=== PATIENT | female | born 1975 | race Caucasian/White ===

== ENCOUNTER 2016-03-05 21:55 | Emergency (ER) | payer MEDICAID ==
[~2016-03-05] VITALS: Ht 152.4 cm; Wt 95.0 kg
[~2016-03-05 21:55] MED LIST: CLEO300C2 PO; MMW SSP; TRAM50 PO
[2016-03-05 21:59] VITALS: BP 137/89; PULSE 118; RESP 18; TEMP 98; O2SAT 99
[2016-03-05] MEDS ORDERED: MORPHINE SULFATE 4 MG/ML INJ IV PUSH ONE (22:45)
[2016-03-05] MEDS ORDERED: SODIUM CHLOR 0.9% 1000 ML INJ 1,000 ML IV ONE (22:45)
[2016-03-05 23:12] LABS: AUTOMATED NEUTROPHIL # 5.6 TH/MM3 (1.8-7.7); BASOPHIL # 0.3 TH/MM3 (0-0.2); BASOPHIL % 3.3 % (0.0-2.0); EOSINOPHIL # 0.1 TH/MM3 (0-0.4); EOSINOPHIL % 0.6 % (0.0-4.0); HEMATOCRIT 42.4 % (35.0-46.0); LYMPHOCYTE # 2.8 TH/MM3 (1.0-4.8); MEAN CELL VOLUME 86.6 FL (80.0-100.0); MEAN CORPUSCULAR HEMOGLOBIN 29.2 PG (27.0-34.0); MEAN CORPUSCULAR HGB CONC 33.7 % (32.0-36.0); MONO % 4.3 % (0.0-8.0); NEUT % 61.8 % (16.0-70.0); PLATELET COUNT 294 TH/MM3 (150-450); RED BLOOD COUNT 4.89 MIL/MM3 (4.00-5.30); RED CELL DISTRIBUTION WIDTH 13.4 % (11.6-17.2); WHITE BLOOD COUNT 9.2 TH/MM3 (4.0-11.0)
[2016-03-05 23:13] LABS: HEMO FLAGS DIFF FINAL
[2016-03-05 23:16] LABS: BLOOD, URINE TRACE (NEG); GLUCOSE,URINE NEG (NEG); KETONE, URINE NEG (NEG); NITRITE,URINE NEG (NEG)
[2016-03-05 23:17] VITALS: BP 122/71; PULSE 86; RESP 19; O2SAT 99
[2016-03-05 23:20] LABS: CHLORIDE 109 MEQ/L (98-107); POTASSIUM 3.7 MEQ/L (3.5-5.1); SODIUM (NA) 141 MEQ/L (136-145)
[2016-03-05 23:21] LABS: BACTERIA, URINE RARE /hpf; COMMENT (UR) CULT NOT INDICATED; CULTURE IF INDICATED CULT NOT INDICATED; RBC, URINE 0-3 /hpf (0-3); URINE COLOR STRAW (YELLW/STRAW)
[2016-03-05 23:23] LABS: ANION GAP 8 MEQ/L (5-15); BICARBONATE 23.7 MEQ/L (21.0-32.0)
[2016-03-05 23:24] LABS: BLOOD UREA NITROGEN 6 MG/DL (7-18)
[2016-03-05 23:25] VITALS: BP 128/65; PULSE 85; RESP 18; O2SAT 98
[2016-03-05 23:26] LABS: ALT (GPT) 39 U/L (10-53); AST (GOT) 13 U/L (15-37); GLOMERULAR FILTRATION RATE 91 ML/MIN (>89)
[2016-03-05 23:28] LABS: TOTAL BILIRUBIN ADULT 0.2 MG/DL (0.2-1.0)
[2016-03-05 23:29] LABS: ALKALINE PHOSPHATASE 80 U/L (45-117)
[2016-03-05] MEDS ORDERED: ONDANSETRON HCL 4 MG/2 ML VIAL IV PUSH ONE (23:45)
[2016-03-05 23:50] VITALS: BP 124/82; PULSE 88; RESP 18; O2SAT 98
--- NOTE | 2016-03-06 00:21 | PD ---
HPI Chief Complaint: Abdominal Pain Time Seen by Provider: 22:21 Travel History International Travel<30 days: No Contact w/Intl Traveler<30days: No Traveled to known affect area: No History of Present Illness HPI Patient is a 40-year-old female who comes in complaining of rectal pain and drainage for the past week. She says soon after crispness she noticed a painful lump around her rectum. She says it then started draining. She reports having a fever of 101 yesterday. She says she has pain with a bowel movement and she has difficulty moving her bowels, and has started to have pain in the left side of her abdomen. She has felt like her heart is racing. She says she's had some nausea, but no vomiting. She says she feels like the lump has gone down, and has not noticed any draining for the past few days. She tried to call her doctor today who advised she come to the emergency department. She denies any history of anal intercourse. 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) Diabetes: No Diminished Hearing: No Endocrine: No Gastrointestinal Disorders: No Genitourinary: No Immune Disorder: No Implanted Vascular Access Dvce: No Musculoskeletal: No Neurologic: No Psychiatric: No Reproductive: No Respiratory: No Immunizations Current: Yes Tetanus Vaccination: < 5 Years Influenza Vaccination: No ?: Not LMP: 12-11-16 Past Surgical History Abdominal Surgery: Yes (BIN) Section: Yes Cholecystectomy: Yes Gynecologic Surgery: Yes (C/SECTION X1) Oral Surgery: Yes (TONSILLECTOMY) Tonsillectomy: Yes Other Surgery: Yes Social History Alcohol Use: No Tobacco Use: Yes (< 1PPD) Substance Use: No Allergies-Medications (Allergen,Severity, Reaction): Coded Allergies: Ibuprofen (Verified Allergy, Mild, N/V, 03/05/16) Reported Meds & Prescriptions Reported Meds & Active Scripts Active Clindamycin (Clindamycin HCl) 150 Mg Cap 300 Mg PO Q6H 7 Days Lortab (Hydrocodone-Acetaminophen) 5-325 Mg Tab 1 Tab PO Q6H PRN Review of Systems Except as stated in HPI: all other systems reviewed are Neg General / Constitutional: Positive: Fever, Chills HENT: Positive: Headaches Cardiovascular: Positive: Palpitations, No: Chest Pain or Discomfort Respiratory: No: Shortness of Breath Gastrointestinal: Positive: Nausea, Abdominal Pain, No: Vomiting Genitourinary: No: Dysuria Skin: No Rash, No Change in Pigmentation Neurologic: No: Weakness, Dizziness Physical Exam Narrative GENERAL: Awake and alert in no acute distress. SKIN: Warm and dry. HEAD: Atraumatic. Normocephalic. EYES: Pupils equal and round. No scleral icterus. ENT: Mucous membranes pink and moist. NECK: Trachea midline. No JVD. CARDIOVASCULAR: Regular rate and rhythm. No murmur appreciated. RESPIRATORY: No accessory muscle use. Clear to auscultation. Breath sounds equal bilaterally. GASTROINTESTINAL: Abdomen soft, nondistended. Tender to palpation of the left side of the abdomen. No rebound or guarding. No CVA tenderness. RECTAL: No mass or drainage seen. Tender to palpation to the anus/rectum. MUSCULOSKELETAL: No obvious deformities. No clubbing. No cyanosis. No edema. NEUROLOGICAL: Awake and alert. No obvious cranial nerve deficits. Motor grossly within normal limits. Normal speech. PSYCHIATRIC: Appropriate mood and affect; insight and judgment normal. Data Data Last Documented VS Vital Signs Date Time Temp Pulse Resp B/P Pulse Ox O2 Delivery O2 Flow Rate FiO2 03/06/16 02:27 82 18 117/69 98 03/05/16 23:50 Room Air 03/05/16 21:59 98.0 Orders Complete Blood Count With Diff (03/05/16 22:35) Comprehensive Metabolic Panel (03/05/16 22:35) Sodium Chlor 0.9% 1000 Ml Inj (Ns 1000 M (03/05/16 22:45) Lactic Acid (03/05/16 22:35) Urinalysis - C+S If Indicated (03/05/16 22:35) Ed Urine Pregnancytest Poc (03/05/16 22:35) Morphine Inj (Morphine Inj) (03/05/16 22:45) Ondansetron Inj (Zofran Inj) (03/05/16 23:45) Ct Abd/Pel W Iv Contrast(Rout) (03/06/16 ) Iohexol 350 Inj (Omnipaque 350 Inj) (03/06/16 01:13) Labs Laboratory Tests Test 03/05/16 03/05/16 22:07 23:00 Urine Color STRAW Urine Turbidity CLEAR Urine pH 6.0 Urine Specific [place] 1.008 Urine Protein NEG mg/dL Urine Glucose (UA) NEG mg/dL Urine Ketones NEG mg/dL Urine Occult Blood TRACE Urine Nitrite NEG Urine Bilirubin NEG Urine Leukocyte Esterase TRACE Urine RBC 0-3 /hpf Urine WBC 3-5 /hpf Urine Squamous Epithelial 6-8 /hpf Cells Urine Bacteria RARE /hpf Microscopic Urinalysis Comment CULT NOT INDICATED White Blood Count 9.2 TH/MM3 Red Blood Count 4.89 MIL/MM3 Hemoglobin 14.3 GM/DL Hematocrit 42.4 % Mean Corpuscular Volume 86.6 FL Mean Corpuscular Hemoglobin 29.2 PG Mean Corpuscular Hemoglobin 33.7 % Concent Red Cell Distribution Width 13.4 % Platelet Count 294 TH/MM3 Mean Platelet Volume 7.0 FL Neutrophils (%) (Auto) 61.8 % Lymphocytes (%) (Auto) 30.0 % Monocytes (%) (Auto) 4.3 % Eosinophils (%) (Auto) 0.6 % Basophils (%) (Auto) 3.3 % Neutrophils # (Auto) 5.6 TH/MM3 Lymphocytes # (Auto) 2.8 TH/MM3 Monocytes # (Auto) 0.4 TH/MM3 Eosinophils # (Auto) 0.1 TH/MM3 Basophils # (Auto) 0.3 TH/MM3 CBC Comment DIFF FINAL Differential Comment Sodium Level 141 MEQ/L Potassium Level 3.7 MEQ/L Chloride Level 109 MEQ/L Carbon Dioxide Level 23.7 MEQ/L Anion Gap 8 MEQ/L Blood Urea Nitrogen 6 MG/DL Creatinine 0.72 MG/DL Estimat Glomerular Filtration 91 ML/MIN Rate Random Glucose 92 MG/DL Lactic Acid Level 1.1 mmol/L Calcium Level 8.7 MG/DL Total Bilirubin 0.2 MG/DL Aspartate Amino Transf 13 U/L (AST/SGOT) Alanine Aminotransferase 39 U/L (ALT/SGPT) Alkaline Phosphatase 80 U/L Total Protein 7.3 GM/DL Albumin 3.6 GM/DL [facility] Medical Decision Making Medical Screen Exam Complete: Yes Emergency Medical Condition: Yes Differential Diagnosis Rectal abscess versus diverticulitis versus colitis versus perirectal abscess Narrative Course Patient is a 40-year-old female who comes in complaining of a painful lump to her rectum. Exam shows tenderness to palpation of the rectum. IV established, labs sent. Patient given IV fluids, morphine, Zofran. Labs show no acute abnormalities. We'll obtain CT scanned to rule out rectal abscess. Patient signed out to Dr. Moore to follow-up CT scan and disposition appropriately. Scripts Clindamycin 150 Mg [id number] Mg PO Q6H 7 Days Ref 0 Prov:Tyesha Moore MD 03/06/16 Hydrocodone-Acetaminophen (Lortab)5-325 Mg Tab1 Tab PO Q6H PRN (PAIN) #10 TAB Ref 0 Prov:Tyesha Moore MD 03/06/16 Condition: Stable Mariam Page MD Mar 06, 2016 00:21
--- NOTE | 2016-03-06 01:04 | PD ---
Physical Exam Date Seen by Provider: Mar 06, 2016 Time Seen by Provider: 01:03 Narrative accepted in transfer of care from Dr Page GENERAL: Well-developed well-nourished female in no acute distress no respiratory distress SKIN: Warm and dry. Buttock cleft mild tenderness no induration no fluctuance. Data Data Last Documented VS Vital Signs Date Time Temp Pulse Resp B/P Pulse Ox O2 Delivery O2 Flow Rate FiO2 03/05/16 23:17 86 19 122/71 99 Room Air 03/05/16 21:59 98.0 Orders Complete Blood Count With Diff (03/05/16 22:35) Comprehensive Metabolic Panel (03/05/16 22:35) Sodium Chlor 0.9% 1000 Ml Inj (Ns 1000 M (03/05/16 22:45) Lactic Acid (03/05/16 22:35) Urinalysis - C+S If Indicated (03/05/16 22:35) Ed Urine Pregnancytest Poc (03/05/16 22:35) Morphine Inj (Morphine Inj) (03/05/16 22:45) Ondansetron Inj (Zofran Inj) (03/05/16 23:45) Ct Abd/Pel W Iv Contrast(Rout) (03/06/16 ) Iohexol 350 Inj (Omnipaque 350 Inj) (03/06/16 01:13) Labs Laboratory Tests Test 03/05/16 03/05/16 22:07 23:00 Urine Color STRAW Urine Turbidity CLEAR Urine pH 6.0 Urine Specific [place] 1.008 Urine Protein NEG mg/dL Urine Glucose (UA) NEG mg/dL Urine Ketones NEG mg/dL Urine Occult Blood TRACE Urine Nitrite NEG Urine Bilirubin NEG Urine Leukocyte Esterase TRACE Urine RBC 0-3 /hpf Urine WBC 3-5 /hpf Urine Squamous Epithelial 6-8 /hpf Cells Urine Bacteria RARE /hpf Microscopic Urinalysis Comment CULT NOT INDICATED White Blood Count 9.2 TH/MM3 Red Blood Count 4.89 MIL/MM3 Hemoglobin 14.3 GM/DL Hematocrit 42.4 % Mean Corpuscular Volume 86.6 FL Mean Corpuscular Hemoglobin 29.2 PG Mean Corpuscular Hemoglobin 33.7 % Concent Red Cell Distribution Width 13.4 % Platelet Count 294 TH/MM3 Mean Platelet Volume 7.0 FL Neutrophils (%) (Auto) 61.8 % Lymphocytes (%) (Auto) 30.0 % Monocytes (%) (Auto) 4.3 % Eosinophils (%) (Auto) 0.6 % Basophils (%) (Auto) 3.3 % Neutrophils # (Auto) 5.6 TH/MM3 Lymphocytes # (Auto) 2.8 TH/MM3 Monocytes # (Auto) 0.4 TH/MM3 Eosinophils # (Auto) 0.1 TH/MM3 Basophils # (Auto) 0.3 TH/MM3 CBC Comment DIFF FINAL Differential Comment Sodium Level 141 MEQ/L Potassium Level 3.7 MEQ/L Chloride Level 109 MEQ/L Carbon Dioxide Level 23.7 MEQ/L Anion Gap 8 MEQ/L Blood Urea Nitrogen 6 MG/DL Creatinine 0.72 MG/DL Estimat Glomerular Filtration 91 ML/MIN Rate Random Glucose 92 MG/DL Lactic Acid Level 1.1 mmol/L Calcium Level 8.7 MG/DL Total Bilirubin 0.2 MG/DL Aspartate Amino Transf 13 U/L (AST/SGOT) Alanine Aminotransferase 39 U/L (ALT/SGPT) Alkaline Phosphatase 80 U/L Total Protein 7.3 GM/DL Albumin 3.6 GM/DL [facility] Medical Record Reviewed: Yes Supervised Visit with POOJA: No Interpretation(s) CT abd/pelCONCLUSION: Negative CT abdomen/pelvis with contrast. Yoan Cain MD on March 06, 2016 at 1:32 Board Certified Radiologist. This report was verified electronically. Laboratory Tests Test 03/05/16 03/05/16 22:07 23:00 Urine Color STRAW Urine Turbidity CLEAR Urine pH 6.0 Urine Specific [place] 1.008 Urine Protein NEG mg/dL Urine Glucose (UA) NEG mg/dL Urine Ketones NEG mg/dL Urine Occult Blood TRACE Urine Nitrite NEG Urine Bilirubin NEG Urine Leukocyte Esterase TRACE Urine RBC 0-3 /hpf Urine WBC 3-5 /hpf Urine Squamous Epithelial 6-8 /hpf Cells Urine Bacteria RARE /hpf Microscopic Urinalysis Comment CULT NOT INDICATED White Blood Count 9.2 TH/MM3 Red Blood Count 4.89 MIL/MM3 Hemoglobin 14.3 GM/DL Hematocrit 42.4 % Mean Corpuscular Volume 86.6 FL Mean Corpuscular Hemoglobin 29.2 PG Mean Corpuscular Hemoglobin 33.7 % Concent Red Cell Distribution Width 13.4 % Platelet Count 294 TH/MM3 Mean Platelet Volume 7.0 FL Neutrophils (%) (Auto) 61.8 % Lymphocytes (%) (Auto) 30.0 % Monocytes (%) (Auto) 4.3 % Eosinophils (%) (Auto) 0.6 % Basophils (%) (Auto) 3.3 % Neutrophils # (Auto) 5.6 TH/MM3 Lymphocytes # (Auto) 2.8 TH/MM3 Monocytes # (Auto) 0.4 TH/MM3 Eosinophils # (Auto) 0.1 TH/MM3 Basophils # (Auto) 0.3 TH/MM3 CBC Comment DIFF FINAL Differential Comment Sodium Level 141 MEQ/L Potassium Level 3.7 MEQ/L Chloride Level 109 MEQ/L Carbon Dioxide Level 23.7 MEQ/L Anion Gap 8 MEQ/L Blood Urea Nitrogen 6 MG/DL Creatinine 0.72 MG/DL Estimat Glomerular Filtration 91 ML/MIN Rate Random Glucose 92 MG/DL Lactic Acid Level 1.1 mmol/L Calcium Level 8.7 MG/DL Total Bilirubin 0.2 MG/DL Aspartate Amino Transf 13 U/L (AST/SGOT) Alanine Aminotransferase 39 U/L (ALT/SGPT) Alkaline Phosphatase 80 U/L Total Protein 7.3 GM/DL Albumin 3.6 GM/DL Differential Diagnosis please refer to Dr Do dicatation Narrative Course Patient accepted in transfer of care from Dr. Layton for pending CT and patient disposition. According to Dr. Layton anticipates CT abdomen and pelvis will not show evidence of an abscess but does feel patient would benefit from course of antibiotic and close follow-up with primary care physician At 1:47 AM imaging study is resulted there is no evidence for an abscess imaging study is read as negative for acute process per reading radiologist patient is informed of imaging results and will be discharged with prescription for antibiotic as well as pain medication with close follow-up with primary care physician. Patient understands discharge instructions and answers to questions have been provided Diagnosis Primary Impression: Rectal or anal pain Referrals: Colon Rectal Specialist call for appointment Clay Stain Mixer MD Dr Scott Primary Care Physician Patient Instructions: General Instructions Additional Instruction: Complete course of antibiotic Take pain medication as prescribed Follow-up with primary care physician; call office in a.m. to schedule follow- up appointment Follow-up with colorectal surgeon; call office to schedule appointment Monitor temperature for fever take acetaminophen/Tylenol every 4 hours as needed for fever 100.4F or greater Med/Other Pt SpecificInfo: Prescription(s) given Scripts Clindamycin 150 Mg [id number] Mg PO Q6H 7 Days Ref 0 Prov:Tyesha Moore MD 03/06/16 Hydrocodone-Acetaminophen (Lortab)5-325 Mg Tab1 Tab PO Q6H PRN (PAIN) #10 TAB Ref 0 Prov:Tyesha Moore MD 03/06/16 Disposition: 01 DISCHARGE HOME Condition: Stable Tyesha Moore MD Mar 06, 2016 01:04
[2016-03-06] MEDS ORDERED: IOHEXOL 350 MG/ML 10 ML VIAL (for RAD DIAG) IV ONE (01:13)
--- NOTE | 2016-03-06 01:36 | RADRPT ---
EXAM DATE/TIME: 03/06/2016 01:09 [place] COMPARISON: No previous studies available for comparison. INDICATIONS : Left lower quadrant pain with fever. IV CONTRAST: 98 cc Omnipaque 350 (iohexol) IV ORAL CONTRAST: No oral contrast ingested. RADIATION DOSE: 20.33 CTDIvol (mGy) MEDICAL HISTORY : None SURGICAL HISTORY : Cholecystectomy. section. ENCOUNTER: Initial ACUITY: 1 day PAIN SCALE: 6/10 LOCATION: Left lower quadrant abdomen TECHNIQUE: Volumetric scanning of the abdomen and pelvis was performed. Using automated exposure control and ad justment of the mA and/or kV according to patient size, radiation dose was kept as low as reasonably achievable to obtain optimal diagnostic quality images. FINDINGS: LOWER LUNGS: The visualized lower lungs are clear. LIVER: Homogeneous density without lesion. There is no dilation of the biliary tree. Hemoclips in the port al from prior cholecystectomy. SPLEEN: Normal size without lesion. PANCREAS: Within normal limits. KIDNEYS: Normal in size and shape. There is no mass, stone or hydronephrosis. ADRENAL GLANDS: Within normal limits. VASCULAR: There is no aortic aneurysm. BOWEL/MESENTERY: No dilated loops of small or large bowel. The appendix is identified in the right lower quadrant and has normal imaging characteristics. ABDOMINAL WALL: Within normal limits. RETROPERITONEUM: There is no lymphadenopathy. BLADDER: No wall thickening or mass. REPRODUCTIVE: The uterus is anteverted. No evidence of free fluid. INGUINAL: There is no lymphadenopathy or hernia. MUSCULOSKELETAL: The visualized osseous structures are intact. CONCLUSION: Negative CT abdomen/pelvis with contrast. Yoan Cain MD on March 06, 2016 at 1:32 Board Certified Radiologist. This report was verified electronically.
[2016-03-06] MEDS ORDERED: CLIN1CAP5 PO (02:06)
[2016-03-06] MEDS ORDERED: HYDR-3533 PO (02:06)
[2016-03-06 02:27] VITALS: BP 117/69
== END 2016-03-06 02:28 | disposition home or self-care (01) ==
LOC: PHED 21:55
DX: F17.210 Nicotine dependence, cigarettes, uncomplicated (principal); K62.89 Other specified diseases of anus and rectum
CPT/HCPCS: 74177; 80053; 81001; 83605; 84703; 85025; J2270; J2405; J7030; Q9967; 96361; 96374; 96375

== ENCOUNTER 2016-04-16 20:20 | Emergency (ER) | payer MEDICAID ==
[~2016-04-16] VITALS: Ht 160 cm; Wt 94.0 kg
[~2016-04-16 20:20] MED LIST changes: -CLEO300C2 PO; +CLIN1CAP5 PO; +HYDR-3533 PO; -MMW SSP; -TRAM50 PO
[2016-04-16 20:26] VITALS: BP 128/80; PULSE 110; RESP 18; TEMP 99.6
[2016-04-16] MEDS ORDERED: PHEN1LIQ60 (20:57)
[2016-04-16] MEDS ORDERED: SODIUM CHLOR 0.9% 1000 ML INJ 1,000 ML IV ONE (21:00)
[2016-04-16] MEDS ORDERED: AZITHROMYCIN INJ 500 MG in SODIUM CHLOR 0.9% 250 ML INJ 250 ML IV ONE (21:00)
[2016-04-16] MEDS ORDERED: SODIUM CHLORIDE 0.9% FLUSH 5 ML FLUSH IVF PRN (21:00)
[2016-04-16] MEDS ORDERED: ACETAMINOPHEN 325 MG TAB PO ONE (21:00)
[2016-04-16] MEDS ORDERED: cefTRIAXone INJ 1,000 MG in SODIUM CHLORIDE 0.9% INJ 100 ML IV ONE (21:00)
--- NOTE | 2016-04-16 21:06 | PD ---
HPI Chief Complaint: Chest Pain Time Seen by Provider: 20:56 Travel History International Travel<30 days: No Contact w/Intl Traveler<30days: No Traveled to known affect area: No History of Present Illness HPI 40-year-old female presents to the emergency department for complaint of pleuritic chest pain. Patient states she's been diagnosed twice in the past with pleurisy and knows what it feels like. Patient states symptoms have been progressively worsening over the past week to week and a half. Child has been sick at home with similar symptoms. Patient has had a congested cough. Patient 's had temperature elevation of 99.6. Patient is allergic to ibuprofen at the causes her to vomit service taken no ibuprofen. Patient has used over-the- counter NyQuil. Patient denies any family history of personal history of clotting disorder. Patient does not take control pills. Patient's had no long distance travel protracted bedrest her surgical procedure. Patient has had no lower from a pain or swelling opportunity pain or swelling. Patient's had no recent illness mentation. Patient's hospice appears was 2 days ago normal for her denies . Patient states she's had green sputum production. Patient's had no vomiting abdominal pain flank pain dysuria frequency urgency joint pain swelling or skin rash. Patient denies other concerns or complaints. Pain is primarily in her back with movement palpation and deep breathing. Patient states her tried to massage out the area of discomfort that only seemed to make symptoms worse. Patient denies any injury or fall. PFSH Past Medical History Narrative Medical Pleurisy TIA/CVA 2001 cholecystectomy tonsillectomy tobacco use nursing notes reviewed Blood Disorders: No Cancer: No Cardiovascular Problems: No Cerebrovascular Accident: Yes (2010-RESIDUAL SHORT TERM MEMORY LOSS) Diabetes: No Diminished Hearing: No Endocrine: No Gastrointestinal Disorders: No Genitourinary: No Immune Disorder: No Implanted Vascular Access Dvce: No Musculoskeletal: No Neurologic: No Psychiatric: No Reproductive: No Respiratory: Yes (PLEURSY) Immunizations Current: Yes ?: Not LMP: 04/14/16 Past Surgical History Abdominal Surgery: Yes (BIN) Section: Yes Cholecystectomy: Yes Gynecologic Surgery: Yes (C/SECTION X1) Oral Surgery: Yes (TONSILLECTOMY) Tonsillectomy: Yes Other Surgery: Yes Social History Alcohol Use: Yes Tobacco Use: Yes (< 1PPD) Substance Use: No Allergies-Medications (Allergen,Severity, Reaction): Coded Allergies: Ibuprofen (Verified Allergy, Mild, N/V, 04/16/16) Reported Meds & Prescriptions Reported Meds & Active Scripts Active Reported Nyquil Severe Cold/Flu Liq (Rqaoytljrzomx-Uyxiiprwfz-SF-Apap Liq) 5-6.25-10-325 Mg/15 Ml Liq Review of Systems General / Constitutional: Positive: Fever (subjective), No: Chills Eyes: No: Pain HENT: Positive: Sore Throat, Congestion Cardiovascular: Positive: Chest Pain or Discomfort, No: Palpitations, Diaphoresis, Syncope Respiratory: Positive: Cough, Shortness of Breath, Pleuritic Pain, No: Hemoptysis Gastrointestinal: No: Nausea, Vomiting, Diarrhea, Abdominal Pain Genitourinary: No: Dysuria, Flank Pain Musculoskeletal: No: Myalgias, Arthralgias Skin: No Rash Neurologic: No: Weakness Psychiatric: No: Anxiety Endocrine: No: Heat Intolerance Hematologic/Lymphatic: No: Easy Bruising Physical Exam Narrative GENERAL: Well-developed well-nourished female in no acute distress no respiratory distress. SKIN: Warm and dry. HEAD: Atraumatic. Normocephalic. EYES: Pupils equal and round. No scleral icterus. No injection or drainage. ENT: No nasal bleeding or discharge. Mucous membranes pink and moist. NECK: Trachea midline. No JVD. CARDIOVASCULAR: Regular rate and rhythm. RESPIRATORY: No accessory muscle use. Clear to auscultation. Breath sounds equal bilaterally. GASTROINTESTINAL: Abdomen soft, non-tender, nondistended. Hepatic and splenic margins not palpable. MUSCULOSKELETAL: Extremities without clubbing, cyanosis, or edema. No obvious deformities. NEUROLOGICAL: Awake and alert. No obvious cranial nerve deficits. Motor grossly within normal limits. Five out of 5 muscle strength in the arms and legs. Normal speech. PSYCHIATRIC: Appropriate mood and affect; insight and judgment normal. Data Data Last Documented VS Vital Signs Date Time Temp Pulse Resp B/P Pulse Ox O2 Delivery O2 Flow Rate FiO2 04/16/16 22:00 87 16 111/69 98 04/16/16 20:52 Room Air 04/16/16 20:26 99.6 Orders Electrocardiogram (04/16/16 20:56) Complete Blood Count With Diff (04/16/16 20:56) Basic Metabolic Panel (Bmp) (04/16/16 20:56) Influenzae A/B Antigen (04/16/16 20:56) Chest, Pa & Lat (04/16/16 20:56) Iv Access Insert/Monitor (04/16/16 20:56) Oximetry (04/16/16 20:56) Acetaminophen (Tylenol) (04/16/16 21:00) Sodium Chloride 0.9% Flush (Ns Flush) (04/16/16 21:00) Ceftriaxone Inj (Rocephin Inj) (04/16/16 21:00) Azithromycin Inj (Zithromax Inj) (04/16/16 21:00) Lactic Acid (04/16/16 20:56) Blood Culture (04/16/16 20:56) Sodium Chlor 0.9% 1000 Ml Inj (Ns 1000 M (04/16/16 21:00) Ed Urine Pregnancytest Poc (04/16/16 20:56) Urinalysis - C+S If Indicated (04/16/16 20:56) D-Dimer (04/16/16 22:04) Ondansetron Inj (Zofran Inj) (04/16/16 23:15) Morphine Inj (Morphine Inj) (04/16/16 23:15) Albuterol-Ipratropium Neb (Duoneb Neb) (04/16/16 23:30) Methylprednisolone So Succ Inj (Solumedr (04/16/16 23:30) Labs Laboratory Tests Test 04/16/16 04/16/16 21:30 22:20 White Blood Count 8.0 TH/MM3 Red Blood Count 4.77 MIL/MM3 Hemoglobin 14.6 GM/DL Hematocrit 41.4 % Mean Corpuscular Volume 86.7 FL Mean Corpuscular Hemoglobin 30.5 PG Mean Corpuscular Hemoglobin 35.2 % Concent Red Cell Distribution Width 13.7 % Platelet Count 243 TH/MM3 Mean Platelet Volume 7.0 FL Neutrophils (%) (Auto) 73.0 % Lymphocytes (%) (Auto) 17.0 % Monocytes (%) (Auto) 7.2 % Eosinophils (%) (Auto) 0.4 % Basophils (%) (Auto) 2.4 % Neutrophils # (Auto) 5.8 TH/MM3 Lymphocytes # (Auto) 1.4 TH/MM3 Monocytes # (Auto) 0.6 TH/MM3 Eosinophils # (Auto) 0.0 TH/MM3 Basophils # (Auto) 0.2 TH/MM3 CBC Comment DIFF FINAL Differential Comment D-Dimer Quantitative (PE/DVT) 0.33 MG/L FEU Sodium Level 141 MEQ/L Potassium Level 3.9 MEQ/L Chloride Level 108 MEQ/L Carbon Dioxide Level 27.5 MEQ/L Anion Gap 6 MEQ/L Blood Urea Nitrogen 8 MG/DL Creatinine 0.79 MG/DL Estimat Glomerular Filtration 81 ML/MIN Rate Random Glucose 97 MG/DL Lactic Acid Level 1.0 mmol/L Calcium Level 8.5 MG/DL Urine Color YELLOW Urine Turbidity CLEAR Urine pH 6.0 Urine Specific [place] 1.020 Urine Protein NEG mg/dL Urine Glucose (UA) NEG mg/dL Urine Ketones NEG mg/dL Urine Occult Blood SMALL Urine Nitrite NEG Urine Bilirubin NEG Urine Leukocyte Esterase NEG Urine RBC 3-5 /hpf Urine WBC 0-2 /hpf Urine Squamous Epithelial 6-8 /hpf Cells Urine Bacteria RARE /hpf Microscopic Urinalysis Comment CULT NOT INDICATED MDM Medical Decision Making Medical Screen Exam Complete: Yes Emergency Medical Condition: Yes Medical Record Reviewed: Yes Interpretation(s) CBC & BMP Diagram 04/16/16 21:30 Last Impressions Chest X-Ray 04/16/162055 Signed Impressions: Service Date/Time: April 21:08 - CONCLUSION: No acute disease. Pedro Cruz MD d-dimer: 0.32 not elevated Influenza A/B antigen: Negative Differential Diagnosis Pleurisy, bronchitis, pneumonia, atypical chest pain, ACS, PE Narrative Course IV access obtained specimens collected and sent for resulting chest x-ray ordered EKG performed patient administered presumptively Rocephin 1 g IV piggyback and azithromycin 500 mg IV piggyback after blood cultures obtained patient also administered 1 L normal saline bolus Patient clinically improved chest x-ray reveals no lobar infiltrate D-dimer is not elevated at 0.33, low suspicion at this time for PE Patient administered Zofran 4 mg IV along with morphine sulfate 4 mg IV for pain into the back that is reproducible; patient is with ibuprofen. Peripheral medication but due to allergy will defer this medication at this time Patient has received first dose of IV antibiotic DuoNeb updraft and Solu-Medrol ; patient is clinically improved and stable for outpatient management at this time; patient is encouraged to follow-up with her primary care physician return to the emergency department if no improvement or worsening of condition. Patient is encouraged to monitor her closely and she will need antipyretic for fever 100.4 use Fahrenheit or greater. Diagnosis Primary Impression: Bronchitis Additional Impression: Pleurisy Referrals: Primary Care Physician 1 day Patient Instructions: General Instructions Additional Instructions: Follow-up with primary care provider call office in a.m. to schedule follow-up appointment Complete course of antibiotic as prescribed Use inhaler as prescribed as needed for wheezing or shortness of breath Complete course of Medrol Dosepak Monitor temperature every 4 hours with thermometer and take acetaminophen/ Tylenol every 4 hours for fever 100.4F or greater Increase fluid hydration No work 2 days Return to the emergency department for any concerns or change in condition Med/Other Pt SpecificInfo: Prescription(s) given Scripts Albuterol 6.7 GM Inh (Proventil Hfa 6.7 GM Inh)90 Mcg/Act Aer2 Puff INH Q4-6H PRN (SHORTNESS OF BREATH) #1 INHALER Ref 0 Prov:Tyesha Moore MD 04/16/16 Hydrocodone-Acetaminophen (Lortab)5-325 Mg Tab1 Tab PO Q6H PRN (PAIN) #10 TAB Ref 0 Prov:Tyesha Moore MD 04/16/16 Methylprednisolone Dosepak (Medrol Dosepak)4 Mg Dspk4 Mg PO DIRECTED #1 DSPK Ref 0 Per Pharmacist direction Prov:Tyesha Moore MD 04/16/16 Azithromycin (Zithromax Z-Kenny)250 Mg [id number] Mg PO DIRECTED #1 DSPK Ref 0 500 MG (2 tabs) day 1, then 1 tab days 2-5. Prov:Tyesha Moore MD 04/16/16 Disposition: 01 DISCHARGE HOME Condition: Stable Tyesha Moore MD Apr 16, 2016 21:06
--- NOTE | 2016-04-16 21:28 | RADHPO ---
EXAM DATE/TIME: 04/16/2016 21:08 [facility] COMPARISON: No previous studies available for comparison. INDICATIONS : Painful to breathe. MEDICAL HISTORY : Pleurisy SURGICAL HISTORY : None. ENCOUNTER: Initial ACUITY: 1 day PAIN SCORE: 8/10 LOCATION: Bilateral chest FINDINGS: PA and lateral views of the chest demonstrate the lungs to be symmetrically aerated without evidence of mass, infiltrate or effusion. The cardiomediastinal contours are unremarkable. Osseous structure s are intact. CONCLUSION: No acute disease. Pedro Cruz MD on April 16, 2016 at 21:26 Board Certified Radiologist. This report was verified electronically.
[2016-04-16 21:41] LABS: AUTOMATED NEUTROPHIL # 5.8 TH/MM3 (1.8-7.7); BASOPHIL # 0.2 TH/MM3 (0-0.2); BASOPHIL % 2.4 % (0.0-2.0); EOSINOPHIL % 0.4 % (0.0-4.0); HEMATOCRIT 41.4 % (35.0-46.0); HEMO FLAGS DIFF FINAL; LYMPHOCYTE # 1.4 TH/MM3 (1.0-4.8); MEAN CELL VOLUME 86.7 FL (80.0-100.0); MEAN CORPUSCULAR HEMOGLOBIN 30.5 PG (27.0-34.0); MEAN CORPUSCULAR HGB CONC 35.2 % (32.0-36.0); MONO % 7.2 % (0.0-8.0); PLATELET COUNT 243 TH/MM3 (150-450); RED BLOOD COUNT 4.77 MIL/MM3 (4.00-5.30); RED CELL DISTRIBUTION WIDTH 13.7 % (11.6-17.2)
[2016-04-16 21:55] LABS: POTASSIUM 3.9 MEQ/L (3.5-5.1)
[2016-04-16 21:58] LABS: BICARBONATE 27.5 MEQ/L (21.0-32.0)
[2016-04-16 22:00] VITALS: BP 111/69; PULSE 87; RESP 16; O2SAT 98
[2016-04-16 22:32] LABS: BLOOD, URINE SMALL (NEG); GLUCOSE,URINE NEG (NEG); KETONE, URINE NEG (NEG); NITRITE,URINE NEG (NEG)
[2016-04-16 22:38] LABS: BACTERIA, URINE RARE /hpf; COMMENT (UR) CULT NOT INDICATED; CULTURE IF INDICATED CULT NOT INDICATED; URINE COLOR YELLOW (YELLW/STRAW); WBC, URINE 0-2 /hpf (0-5)
[2016-04-16] MEDS ORDERED: ONDANSETRON HCL 4 MG/2 ML VIAL IV PUSH ONE (23:15)
[2016-04-16] MEDS ORDERED: MORPHINE SULFATE 4 MG/ML INJ IV PUSH ONE (23:15)
[2016-04-16] MEDS ORDERED: MEDR4PAK PO (23:29)
[2016-04-16] MEDS ORDERED: ALBU6.7H INH (23:29)
[2016-04-16] MEDS ORDERED: HYDR-3533 PO (23:29)
[2016-04-16] MEDS ORDERED: ZITHTAB PO (23:29)
[2016-04-16] MEDS ORDERED: methylPREDNISolone SOD SUCC 125 MG/2 ML VIAL IV PUSH ONE (23:30)
[2016-04-16] MEDS ORDERED: RESP: ALBUTEROL 2.5 MG/IPRATROPIUM 0.5 MG NEB (SCH) NEB ONE (23:30)
[2016-04-17 00:59] VITALS: BP 104/58
--- NOTE | 2016-04-17 17:12 | EKG ---
Date Performed: 04/16/2016 Time Performed: 22:44:16 PTAGE: 40 years EKG: Sinus rhythm . rSr'(V1) - probable normal variant Low QRS voltages in precordial leads Compared to prior tracing n o significant change Borderline ECG PREVIOUS TRACING : 02/02/2010 17.13 DOCTOR: Antoine Onofre Interpretating Date/Time 04/17/2016 17:01:48
== END 2016-04-17 01:02 | disposition home or self-care (01) ==
LOC: PHED 20:20
DX: J40 Bronchitis, not specified as acute or chronic (principal); R09.1 Pleurisy; F10.10 Alcohol abuse, uncomplicated; F17.210 Nicotine dependence, cigarettes, uncomplicated
CPT/HCPCS: 71020; 80048; 81001; 83605; 84703; 85025; 85379; 87040; 87804; 93005; 94664; 96365; 96367; 96375; 99284; J0456; J0696; J2270; J2405; J2930; J7030; J7050

== ENCOUNTER 2016-07-10 13:59 | Emergency (ER) | payer MEDICAID ==
[~2016-07-10] VITALS: Ht 154.9 cm; Wt 91.6 kg
[~2016-07-10 13:59] MED LIST changes: +ALBU6.7H INH; -CLIN1CAP5 PO; +MEDR4PAK PO; +PHEN1LIQ60; +ZITHTAB PO
[2016-07-10 14:07] VITALS: BP 110/80; PULSE 93; RESP 16; TEMP 98.3; O2SAT 98
--- NOTE | 2016-07-10 15:14 | PD ---
HPI Chief Complaint: Musculoskeletal Complaint Time Seen by Provider: 15:14 Travel History International Travel<30 days: No Contact w/Intl Traveler<30days: No Traveled to known affect area: No History of Present Illness HPI 40-year-old female presents the emergency department with injury to the right second toe. Patient was walking in a carport yesterday when she hit a pole causing pain and swelling at the base of the second to the right foot. She is here for evaluation. She has no other complaints. Her pain is about 6 out of 10. She has no other injury. She is allergic to ibuprofen. 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) Diabetes: No Diminished Hearing: No Endocrine: No Gastrointestinal Disorders: No Genitourinary: No Immune Disorder: No Implanted Vascular Access Dvce: No Musculoskeletal: No Neurologic: No Psychiatric: No Reproductive: No Respiratory: Yes (PLEURSY) Immunizations Current: Yes Influenza Vaccination: No ?: Not Past Surgical History Abdominal Surgery: Yes (BIN) Section: Yes Cholecystectomy: Yes Gynecologic Surgery: Yes (C/SECTION X1) Oral Surgery: Yes (TONSILLECTOMY) Tonsillectomy: Yes Other Surgery: Yes Social History Alcohol Use: Yes Tobacco Use: Yes (< 1PPD) Substance Use: No Allergies-Medications (Allergen,Severity, Reaction): Coded Allergies: Ibuprofen (Verified Allergy, Mild, N/V, 07/10/16) Reported Meds & Prescriptions Reported Meds & Active Scripts Active No Active Prescriptions or Reported Medications Review of Systems Except as stated in HPI: all other systems reviewed are Neg General / Constitutional: No: Fever Eyes: No: Visual changes HENT: No: Headaches Cardiovascular: No: Chest Pain or Discomfort Respiratory: No: Shortness of Breath Gastrointestinal: No: Abdominal Pain Genitourinary: No: Dysuria Musculoskeletal: No: Pain Skin: No Rash Neurologic: No: Weakness Psychiatric: No: Depression Endocrine: No: Polydipsia Hematologic/Lymphatic: No: Easy Bruising Physical Exam Narrative GENERAL: Patient appears no acute distress. SKIN: Warm and dry. Normal color. Normal turgor. There is ecchymosis of the base of the second to the right foot. HEAD: Atraumatic. Normocephalic. EYES: Pupils equal and round. No scleral icterus. No injection or drainage. ENT: No nasal bleeding or discharge. Mucous membranes pink and moist. Pharynx is normal. Airway is patent. NECK: Trachea midline. Supple nontender. CARDIOVASCULAR: Regular rate and rhythm. RESPIRATORY: No accessory muscle use. Clear to auscultation. Breath sounds equal bilaterally. MUSCULOSKELETAL: Extremities without clubbing, cyanosis, or edema. Patient has swelling at the base of the second toe of the right foot. No other obvious deformity is noted. Range of motion of the right toes is limited secondary to pain. NEUROLOGICAL: Awake and alert. No obvious cranial nerve deficits. Motor grossly within normal limits. Five out of 5 muscle strength in the arms and legs. Normal speech. PSYCHIATRIC: Appropriate mood and affect; insight and judgment normal. Data Data Last Documented VS Vital Signs Date Time Temp Pulse Resp B/P Pulse Ox O2 Delivery O2 Flow Rate FiO2 07/10/16 14:07 98.3 93 16 110/80 98 Orders Toe (Min 2vws) (07/10/16 ) [facility] Medical Decision Making Medical Screen Exam Complete: Yes Emergency Medical Condition: Yes Differential Diagnosis Right toe contusion. Right toe fracture. Need for x-ray. Narrative Course The patient's medical stable at time of exam. X-ray of the right toe is ordered. X-ray shows nondisplaced fracture of the proximal phalanx of the second toe of the right foot. Patient is placed in a postop shoe. Patient is use Tylenol and ice and kathleen taping as discussed. Patient is informed it could take 6-8 weeks for complete healing. Patient follow with ways operator if necessary. Diagnosis Primary Impression: Fracture of second toe, right, closed Qualified Code: S92.501A - Fracture of second toe, right, closed, initial encounter Referrals: Richmond Zuniga DPM as needed Patient Instructions: General Instructions, Toe Fracture (ED) Additional Instructions: X-ray shows nondisplaced fracture of the proximal phalanx of the second toe of the right foot. Patient is placed in a postop shoe. Patient is use Tylenol and ice and kathleen taping as discussed. Patient is informed it could take 6-8 weeks for complete healing. Patient follow with ways operator if necessary. Scripts No Active Prescriptions or Reported Meds Disposition: DISCHARGE HOME Condition: Stable Melvin [place] July 10, 2016 15:14
--- NOTE | 2016-07-10 15:34 | RADHPO ---
EXAM DATE/TIME: 07/10/2016 14:31 [facility] COMPARISON: No previous studies available for comparison. INDICATIONS : Right second digit pain after running into a pole MEDICAL HISTORY : None. SURGICAL HISTORY : None. ENCOUNTER: Initial ACUITY: 2 days PAIN SCORE: 9/10 LOCATION: Right 2nd toe FINDINGS: One oblique nondisplaced fracture of the proximal fundus of second toe is noted. Bony structures of f oot are otherwise intact. CONCLUSION: Oblique nondisplaced fracture involving the proximal phalanx of the second toe. Sam Roy MD on July 10, 2016 at 15:31 Board Certified Radiologist. This report was verified electronically.
== END 2016-07-10 15:31 | disposition home or self-care (01) ==
LOC: PHED 13:59 → PHEFT 15:31
DX: S92.514A Nondisplaced fracture of proximal phalanx of right lesser toe(s), initial encounter for closed fracture (principal); Z72.0 Tobacco use; Z86.79 Personal history of other diseases of the circulatory system; Z87.09 Personal history of other diseases of the respiratory system; W22.09XA Striking against other stationary object, initial encounter; Y92.89 Other specified places as the place of occurrence of the external cause
CPT/HCPCS: 73660; 99283; L3260